=== PATIENT | female | born 1935 | race Caucasian/White ===

== ENCOUNTER → 2017-10-03 | Outpatient (CLI) | payer OTHER ==
[~2017-10-03] MED LIST: ALBUTEROL2.5 MG/3 M IH; ANASTROZOLE1 MG PO; APRESOLINE50 MG PO; ARIMIDEX1 MG PO; ASPIRIN81 M2 PO; ATARAX,VISTARIL25 MG PO; BENADRYL50 MG PO; CALCIUM 500 +1 EACH PO; CARDIZEM CD120 M1 PO; CARDIZEM CD360 MG PO; CEFDINIR300 MG PO; COLACE100 MG PO; CRESTOR5 MG PO; DIOVAN80 MG PO; ENALAPRIL MALEA20 MG PO; FUROSEMIDE20 MG PO; IBANDRONATE SO150 MG PO; KENALOG,ARISTOC80 G1 TP; KLOR-CON 1010 ME1 PO; KLOR-CON M1010 MEQ PO; LASIX20 MG PO; LOPRESSOR25 MG PO; METOPROLOL SUCC50 MG PO; METOPROLOL TART25 MG PO; MOTRIN800 MG PO; PLAVIX75 MG PO; PREDNISONE20 MG PO; PREDNISONE50 MG PO; PROVENTIL,2.5 MG/3 M IH; SPIRIVA1 INHALATI IH; TRAMADOL HCL50 MG PO; ULTRAM50 MG PO; VASOTEC20 MG PO
== END | disposition home or self-care (01) ==
LOC: OPR 09-28 09:00 → EDSTATUS 08:00
PROC: 0BDF4ZX Extraction of Right Lower Lung Lobe, Percutaneous Endoscopic Approach, Diagnostic (ICD-10-PCS; principal; 2017-10-03)
DX: R91.8 Other nonspecific abnormal finding of lung field (principal); J95.811 Postprocedural pneumothorax; I71.2 Thoracic aortic aneurysm, without rupture; R91.1 Solitary pulmonary nodule; I71.4 Abdominal aortic aneurysm, without rupture
CPT/HCPCS: 71045; 77012; 85027; 85610; 85730; 88305; 88341 TC; 88342 TC

== ENCOUNTER → 2017-10-25 | Outpatient (CLI) | payer OTHER ==
[2017-10-25 11:10] LABS: BICARBONATE 32.5 mEq/L (22-26); CARBOXY HGB 1.9 % (0-5); COMMENTS - BLOOD GASES A+C+; DEVICE RA; METHEMOGLOBIN 0.7 % (0-1.5); PCO2 49 mm Hg (35-45); PO2 55 mm Hg (80-100); SITE LR; pH 7.43 (7.35-7.45)
== END | disposition home or self-care (01) ==
LOC: RES 10:54
PROVIDERS: Thoracic Surgery (Cardiothoracic Vascular Surgery)
DX: J98.4 Other disorders of lung (principal); R94.2 Abnormal results of pulmonary function studies; C34.90 Malignant neoplasm of unspecified part of unspecified bronchus or lung; R91.1 Solitary pulmonary nodule; I71.2 Thoracic aortic aneurysm, without rupture
CPT/HCPCS: 36600; 82803; 94060; 94727; 94729

== ENCOUNTER 2017-11-23 11:34 | Day surgery (SDC) | payer OTHER ==
[~2017-11-23] VITALS: Ht 149.9 cm; Wt 58.5 kg
[~2017-11-23 11:34] MED LIST changes: +SYMBICORT60 INHALAT IH
[2017-11-23] MEDS ORDERED: PROLIA60 MG/1 ML SC (12:18)
[2017-11-23 12:19] VITALS: BP 152/68
[2017-11-23 12:45] LABS: INTER. NORMALIZED RATIO 1.1
[2017-11-23] MEDS ORDERED: NORCO 5/3251 TABLET PO (15:43)
[2017-11-23 16:56] VITALS: BP 136/63
== END 2017-11-23 17:22 | disposition home or self-care (01) ==
LOC: SDC 11:34
PROVIDERS: Thoracic Surgery (Cardiothoracic Vascular Surgery)
PROC: 07B74ZX Excision of Thorax Lymphatic, Percutaneous Endoscopic Approach, Diagnostic (ICD-10-PCS; principal; 2017-11-23)
DX: C34.31 Malignant neoplasm of lower lobe, right bronchus or lung (principal); Z99.81 Dependence on supplemental oxygen; Z85.3 Personal history of malignant neoplasm of breast; I25.10 Atherosclerotic heart disease of native coronary artery without angina pectoris; Z95.5 Presence of coronary angioplasty implant and graft; Z87.891 Personal history of nicotine dependence
CPT/HCPCS: 85610; 86850; 86900; 86901; 88305; 88341 TC; 88342 TC; 94640; J0690; J1100; J2405; J3010